=== PATIENT | female | born 1980 | race Caucasian/White ===

== ENCOUNTER 2018-04-11 04:59 | Inpatient (IN) | payer OTHER ==
[2018-04-11] VITALS (8 sets, daily range): BP systolic 104–153; BP diastolic 47–92
[~2018-04-11] VITALS: Ht 152.4 cm; Wt 46.3 kg
[2018-04-11 05:31] LABS: HEMATOCRIT 36.5 % (37.0-47.0); HEMOGLOBIN 12.1 g/dl (12.0-16.0); MEAN CELL VOLUME 92.2 fl (81.0-99.0); MEAN CORPUSCULAR HGB 30.6 pg (27.0-31.0); MEAN CORPUSCULAR HGB CONC 33.2 g/dl (33.0-37.0); PLATELET COUNT AUTOMATED 295 10*3/uL (130-400); RED BLOOD COUNT 3.96 10*6/uL (4.10-5.10); RED CELL DISTRI WIDTH 13.2 % (0-14.5); WHITE BLOOD COUNT 16.1 10*3/uL (4.8-10.8)
[2018-04-11 05:45] LABS: ALKALINE PHOSPHATASE 63 U/L (45-117); BUN 7 mg/dl (7-24); CHLORIDE 106 mmol/L (98-107); CREATININE 0.69 mg/dL (0.55-1.02); POTASSIUM 2.8 mmol/L (3.5-5.1); SGOT/AST 25 IU/L (3-35); SGPT/ALT 24 U/L (12-78); SODIUM 141 mmol/L (136-145); TOTAL PROTEIN 7.1 gm/dL (6.4-8.2)
[2018-04-11 05:47] LABS: ACETAMINOPHEN (TYLENOL) < 2.0 ug/ml (10-30)
[2018-04-11 05:48] LABS: ETHYL ALCOHOL < 3.0 mg/dl (<3)
[2018-04-11 05:52] LABS: PLATELET SUFFICIENCY NORMAL (NORMAL); TOTAL CELLS COUNTED 100 #CELLS
[2018-04-11 06:05] LABS: BILIRUBIN NEGATIVE (NEGATIVE); BLOOD TRACE-LYSED (NEGATIVE); CLARITY CLOUDY (CLEAR); COLOR YELLOW (YELLOW); GLUCOSE NEGATIVE (NEGATIVE); KETONE 1+ (NEGATIVE); LEUKO ESTERASE 2+ (NEGATIVE); NITRITE POSITIVE (NEGATIVE); UROBILINOGEN 0.2 E.U./dl (0.2-1.0)
[2018-04-11 06:09] LABS: URINE AMPHETAMINES < 1000 (1000ng/ml); URINE BARBITURATES < 200 (200ng/ml); URINE BENZODIAZEPINES < 200 (200ng/ml); URINE CANNABINOIDS (THC) > 50 (50ng/ml); URINE COCAINE < 300 (300ng/ml); URINE METHADONE < 300 (300ng/ml); URINE OPIATES < 300 (300ng/ml)
[2018-04-11 06:25] LABS: BACTERIA 2+; EPITHELIAL CELLS 31-40; MUCOUS 2+; WBC TNTC wbc/hpf (0-5)
[2018-04-11 06:31] LABS: URINE PHENCYCLIDINE < 25 (25ng/ml)
[2018-04-11] MEDS ORDERED: KLONOPIN1 M1 PO (06:44)
[2018-04-11] MEDS ORDERED: ZANTAC 150150 MG PO (06:44)
[2018-04-11 07:16] LABS: BETA-HCG, QUANT < 1.0 mIU/mL (1-3); TROPONIN I < 0.015 ng/ml (<0.045)
[2018-04-11] MEDS ORDERED: NEURONTIN600 MG PO (13:08)
[2018-04-11] MEDS ORDERED: LEXAPRO20 MG PO (13:09)
[2018-04-12] VITALS: BP 106/50; BP 94/52
[2018-04-12 04:00] VITALS: BP 99/60
[2018-04-12 07:08] LABS: BUN 6 mg/dl (7-24); CHLORIDE 108 mmol/L (98-107); CREATININE 0.82 mg/dL (0.55-1.02); POTASSIUM 3.3 mmol/L (3.5-5.1); SODIUM 144 mmol/L (136-145)
[2018-04-12 08:00] VITALS: BP 100/58
[2018-04-12 12:00] VITALS: BP 106/65
[2018-04-12 16:00] VITALS: BP 101/57
[2018-04-13] VITALS: BP 101/57
[2018-04-13 08:00] VITALS: BP 102/72
[2018-04-13 12:00] VITALS: BP 95/59
[2018-04-13 16:00] VITALS: BP 121/59
[2018-04-13 20:00] VITALS: BP 130/75
[2018-04-14] VITALS: BP 110/71
[2018-04-14 06:07] LABS: HIV 1+2 AB + HIV1 P24 AG Non Reactive (Non Reactive)
[2018-04-14 08:00] VITALS: BP 114/70
[2018-04-14 10:07] LABS: HEPATITIS B SURFACE AG Negative (Negative); HEPATITIS C VIRUS ANTIBODY <0.1 s/co (0.0-0.9)
[2018-04-14] MEDS ORDERED: ATARAX,VISTARIL50 MG PO (11:48)
[2018-04-14] MEDS ORDERED: ZOFRAN4 MG PO (11:48)
[2018-04-14] MEDS ORDERED: REQUIP2 M2 PO (11:48)
[2018-04-14 12:00] VITALS: BP 114/77
== END 2018-04-14 12:52 | disposition home or self-care (01) | DRG 690 ==
LOC: ED 04:59 → 5E 05:59 → EDHOLD 05:59 → 5E 06:32
PROVIDERS: Emergency Medicine; Family Medicine; Internal Medicine
DX: N39.0 Urinary tract infection, site not specified (principal); F11.29 Opioid dependence with unspecified opioid-induced disorder; F13.230 Sedative, hypnotic or anxiolytic dependence with withdrawal, uncomplicated; F33.9 Major depressive disorder, recurrent, unspecified; F11.23 Opioid dependence with withdrawal; D72.829 Elevated white blood cell count, unspecified; R00.1 Bradycardia, unspecified; R03.0 Elevated blood-pressure reading, without diagnosis of hypertension; E87.6 Hypokalemia; R73.9 Hyperglycemia, unspecified; F41.1 Generalized anxiety disorder; F43.10 Post-traumatic stress disorder, unspecified; R31.9 Hematuria, unspecified; B96.20 Unspecified Escherichia coli [E. coli] as the cause of diseases classified elsewhere; F12.10 Cannabis abuse, uncomplicated; Z72.0 Tobacco use; Z71.6 Tobacco abuse counseling; Z88.6 Allergy status to analgesic agent; Z79.899 Other long term (current) drug therapy